=== PATIENT | male | born 1950 | race Caucasian/White ===

== ENCOUNTER 2017-08-27 11:15 | Inpatient (IN) | payer OTHER ==
[2017-08-27 11:56] VITALS: BMI 28.8
--- NOTE | 2017-08-27 14:03 | HP ---
COWS - Scale Resting Pulse: 0= [place] 80 or Below Sweatin=Flushed/Facial Moisture Restless Observation: 3= Extraneous Movement Pupil Size: 2= Moderately Dilated Bone or Joint Aches: 2= Severe Diffuse Aches Runny Nose/ Eye Tearin= Runny Nose/Eyes GI Upset > 30mins: 3= Vomiting/Diarrhea Tremor Observation: 2= Slight Tremor Visible Yawning Observation: 2= >3x During Session Anxiety or Irritability: 2=Irritable/Anxious Goose Flesh Skin: 0=Smooth Skin COWS Score: 20 Admission ROS S - HPI Chief Complaint: i need help to stop using heroin Allergies/Adverse Reactions: Allergies Allergy/AdvReac Type Severity Reaction Status Date / Time No Known Allergies Allergy Verified 08/27/17 13:24 History of Present Illness: this 67 years old male with heroin dependence,seeking detox,withdrawal symptom, never been in detox before history of hypertension,type 2 dm,hepatitis c treated,low back pain,history of back surgery peripheral neuropathy longest period of sobriety 30 years weight loss insomnia Exam Limitations: No Limitations - Ebola screening Have you traveled outside of the country in the last 21 days: No Have you had contact with anyone from an Ebola affected area: No Have you been sick,other than usual withdrawal symptoms: No Do you have a fever: No - Review of Systems Constitutional: Chills, Loss of Appetite, Malaise, Night Sweats, Changes in sleep, Weakness, Unintentional Wgt. Loss EENT: reports: Tearing, Nose Congestion Respiratory: reports: No Symptoms reported Cardiac: reports: No Symptoms Reported GI: reports: Diarrhea, Nausea, Vomiting, Abdominal cramping : reports: No Symptoms Reported Musculoskeletal: reports: Back Pain, Joint Pain, Muscle Pain, Joint Stiffness Integumentary: reports: Dryness Neuro: reports: Headache, Tremors Endocrine: reports: No Symptoms Reported Hematology: reports: No Symptoms Reported Psychiatric: reports: No Sypmtoms Reported, Judgement Intact, Mood/Affect Appropiate, Orientated x3 Patient History - Patient Medical History Hx Anemia: Yes (on ferrous sufate) Hx Asthma: No Hx Chronic Obstructive Pulmonary Disease (COPD): No Hx Cancer: No Hx Cardiac Disorders: No Hx Congestive Heart Failure: No Hx Hypertension: Yes (on meds.) Hx Hypercholesterolemia: No Hx Pacemaker: No HX Cerebrovascular Accident: No Hx Seizures: No Hx Dementia: No Hx Diabetes: Yes (Type II on med) Hx Gastrointestinal Disorders: No Hx Liver Disease: No Hx Genitourinary Disorders: No Hx Sexually Transmitted Disorders: No Hx Renal Disease (ESRD): No Hx Thyroid Disease: No Hx Human Immunodeficiency Virus (HIV): No (last 2017 nefative) Hx Hepatitis C: Yes (treated) Hx Depression: Yes Hx Suicide Attempt: No Hx Bipolar Disorder: No Hx Schizophrenia: No Other Medical History: no suicidal,no homicidal - Patient Surgical History Past Surgical History: Yes Hx Neurologic Surgery: Yes (Back sx in 2016) Anesthesia Reaction: No - PPD History Previous Implant?: Yes Documented Results: Negative w/o proof Implanted On Prior [facility] Admission?: No PPD to be Administered?: Yes - Smoking Cessation Smoking history: Current every day smoker Have you smoked in the past 12 months: Yes Aproximately how many cigarettes per day: 40 Hx Chewing Tobacco Use: No Initiated information on smoking cessation: Yes 'Breaking Loose' booklet given: 08/27/17 - Substance & Tx. History Hx Alcohol Use: No Hx Substance Use: Yes Substance Use Type: Heroin, Marijuana Hx Substance Use Treatment: No - Substances Abused Heroin Route: Inhalation Frequency: Daily Amount used: 10 BAGS Age of first use: 21 Date of Last Use: 08/26/17 Marijuana/Hashish Route: Smoking Frequency: 1-2 times per week Amount used: 1 JOINT Age of first use: 61 Date of Last Use: 08/20/17 Family Disease History - Family Disease History Family History: Denies Admission Physical Exam BHS - Vital Signs Vital Signs: Vital Signs - 24 hr 08/27/17 11:54 Temperature 98 F Pulse Rate 77 Respiratory 20 Rate Blood Pressure 117/67 - Physical General Appearance: Yes: Moderate Distress, Tremorous, Irritable, Sweating, Anxious HEENTM: Yes: Normal ENT Inspection, ODETTE, Pharynx Normal Respiratory: Yes: Lungs Clear, Normal Breath Sounds, No Respiratory Distress Neck: Yes: Within Normal Limits, Supple, Trachea in good position Breast: Yes: Within Normal Limits Cardiology: Yes: Within Normal Limits, Regular Rhythm, Regular Rate, S1, S2 Abdominal: Yes: Within Normal Limits, Normal Bowel Sounds, Non Tender, Soft Genitourinary: Yes: Within Normal Limits Back: Yes: Muscle Spasm, Surgical Scar Musculoskeletal: Yes: Back pain, Joint Stiffness, Muscle Pain Extremities: Yes: Within Normal Limits, Normal Range of Motion, Tremors 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 NML intact, Fully Oriented, Alert, Motor Strength 5/5 Integumentary: Yes: Dry Lymphatic: Yes: Within Normal Limits - Diagnostic (1) Opioid dependence with withdrawal Current Visit: Yes Status: Acute (2) Cannabis dependence Current Visit: Yes Status: Acute (3) Low back pain Current Visit: Yes Status: Acute (4) History of back surgery Current Visit: Yes Status: Acute (5) Peripheral neuropathy Current Visit: Yes Status: Acute (6) DM2 (diabetes mellitus, type 2) Current Visit: Yes Status: Acute (7) Essential hypertension Current Visit: Yes Status: Acute (8) Nicotine dependence Current Visit: Yes Status: Acute Cleared for Admission [facility] - Detox or Rehab [facility] Level of Care: Medically Managed Detox Regimen/Protocol: Methadone [facility] Breath Alcohol Content Breath Alcohol Content: 0.008 Urine Drug Screen - Results Drug Screen Negative: No Urine Drug Screen Results: THC-Marijuana, OPI-Opiates, MTD-Methadone
[2017-08-27] MEDS ORDERED: MAG HYDROX/AL HYDROX/SIMETH 30 ML UNIT-DOSE CUP PO PRN (14:24)
[2017-08-27] MEDS ORDERED: guaiFENesin/D-METHORPHAN HB 10 ML UNIT-DOSE CUPS PO PRN (14:24)
[2017-08-27] MEDS ORDERED: LOPERAMIDE HCL 2 MG CAPSULE PO PRN (14:24)
[2017-08-27] MEDS ORDERED: IBUPROFEN 400 MG TABLET (FP) PO PRN (14:24)
[2017-08-27] MEDS ORDERED: hydrOXYzine PAMOATE 25 MG CAPSULE (FP) PO PRN (14:24)
[2017-08-27] MEDS ORDERED: MENTHOL/PHENOL 1 EACH UD MM PRN (14:24)
[2017-08-27] MEDS ORDERED: P-EPHED 60MG/TRIPROLIDI 2.5MG TABLET PO PRN (14:24)
[2017-08-27] MEDS ORDERED: MAGNESIUM CITRATE 300 ML BOTTLE PO PRN (14:24)
[2017-08-27] MEDS ORDERED: MAGNESIUM HYDROX 2400MG/30ML ORAL SUSPENSION 30 ML CUP PO PRN (14:24)
[2017-08-27] MEDS ORDERED: ACETAMINOPHEN 325 MG TABLET (FP) PO PRN (14:24)
[2017-08-27] MEDS ORDERED: NICOTINE POLACRILEX 2 MG GUM BUC PRN (14:24)
[2017-08-27] MEDS ORDERED: METHADONE HCL 10 MG TABLET (FOR DETOX USE ONLY) PO ONE ×2 (14:50→23:00)
[2017-08-27] MEDS: diazePAM 5 MG TABLET PO PRN ×2 (15:52→20:12)
[2017-08-27] MEDS: NICOTINE 21 MG/24 HOURS TOPICAL PATCH TD SCH (15:56)
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
[2017-08-27] MEDS: FERROUS SO4 325 MG TABLET (FP) PO SCH (17:34)
[2017-08-27 18:00] LABS: URINE APPEARANCE SLCLOUDY; URINE BILIRUBIN NEGATIVE (<2.0 mg/dL); URINE COLOR YELLOW; URINE GLUCOSE (UA) NEGATIVE (NEGATIVE); URINE KETONE NEGATIVE (NEGATIVE); URINE LEUK ESTERASE NEGATIVE (NEGATIVE); URINE NITRITE NEGATIVE (NEGATIVE); URINE PROTEIN NEGATIVE (NEGATIVE); URINE UROBILINOGEN NEGATIVE mg/dL (0.2-1.0)
[2017-08-27] MEDS ORDERED: MELATONIN 5 MG TABLETS PO PRN (22:00)
[2017-08-27] MEDS: PREGABALIN 75 MG CAPSULE PO SCH (22:17)
[2017-08-27] MEDS: THIAMINE HCL 100 MG TABLET (FP) PO SCH (22:17)
[2017-08-28] MEDS: diazePAM 5 MG TABLET PO PRN ×5 (05:52→23:20)
[2017-08-28] MEDS: PATIENT'S OWN MEDICATION (NON-FORMULARY) (Linagliptin [Tradjenta] 5 MG) PO SCH (07:53)
[2017-08-28] MEDS: FERROUS SO4 325 MG TABLET (FP) PO SCH ×2 (07:53→17:18)
[2017-08-28] MEDS: PREGABALIN 75 MG CAPSULE PO SCH ×3 (07:53→22:07)
[2017-08-28 09:55] LABS: HEMATOCRIT 35.1 % (35.4-49); HEMOGLOBIN 11.7 GM/dL (11.7-16.9); MCH 31.4 pg (25.7-33.7); MCHC 33.4 g/dl (32.0-35.9); MEAN PLT VOLUME 9.4 fl (7.5-11.1); PLATELET COUNT 196 K/MM3 (134-434); RBC 3.73 M/mm3 (4.00-5.60); RDW 13.9 % (11.9-15.9); WHITE BLOOD COUNT 8.3 K/mm3 (4.0-10.0)
[2017-08-28] MEDS ORDERED: METHADONE HCL 10 MG TABLET (FOR DETOX USE ONLY) PO ONE (10:00)
[2017-08-28 10:23] LABS: BLOOD UREA NITROGEN 35 mg/dL (7-18)
[2017-08-28 10:51] LABS: ALBUMIN 3.7 g/dl (3.4-5.0); ALK PHOS 110 U/L (45-117); ANION GAP 10 (8-16); BILIRUBIN,TOTAL 0.3 mg/dL (0.2-1.0); CALCIUM 9.2 mg/dL (8.5-10.1); CHLORIDE 107 mmol/L (98-107); CO2 24 mmol/L (21-32); CREATININE 1.7 mg/dL (0.7-1.3); GLUCOSE,RANDOM 94 mg/dL (74-106); SGOT/AST 16 U/L (15-37); SGPT/ALT 17 U/L (12-78); SODIUM 141 mmol/L (136-145); TOT PROT 7.6 g/dl (6.4-8.2)
[2017-08-28] MEDS: TAMSULOSIN HCL 0.4 MG CAP.ER.24H (FP) PO SCH (10:52)
[2017-08-28] MEDS: NICOTINE 21 MG/24 HOURS TOPICAL PATCH TD SCH (10:52)
[2017-08-28] MEDS: PRENATAL VITAMINS W/ FOLIC ACID TABLET (FP) PO SCH (10:52)
[2017-08-28] MEDS: PANTOPRAZOLE 40 MG TABLET (FP) PO SCH (10:52)
[2017-08-28] MEDS: RAMIPRIL 5 MG CAPSULE (FP) PO SCH (10:53)
[2017-08-28] MEDS: PATIENT'S OWN MEDICATION (NON-FORMULARY) (Triamterene/Hydrochlorothiazid [Triamterene-Hctz PO SCH (10:53)
--- NOTE | 2017-08-28 12:06 | PN ---
S COWS - Scale Resting Pulse: 0= [place] 80 or Below Sweatin= Chills/Flushing Restless Observation: 3= Extraneous Movement Pupil Size: 2= Moderately Dilated Bone or Joint Aches: 4=Acute Joint/Muscle Pain Runny Nose/ Eye Tearin= Runny Nose/Eyes GI Upset > 30mins: 1= Stomach Cramp Tremor Observation of Outstretched Hands: 2= Slight Tremor Visible Yawning Observation: 1= 1-2x During Session Anxiety or Irritability: 2=Irritable/Anxious Goose Flesh Skin: 0=Smooth Skin COWS Score: 18 BHS Progress Note (SOAP) Subjective: PT C/O ANXIETY,RESTLESSNESS, TREMORS,CHILLS, TEARY EYES,NASAL CONGESTION/RUNNY NOSE,LEG CRAMPS "SEAN HORSE". Objective: 08/28/17 12:03 Vital Signs 08/28/17 08/28/17 08/28/17 06:03 06:30 09:23 Temperature 97.3 F L 98.2 F Pulse Rate 78 75 Respiratory 18 18 18 Rate Blood Pressure 112/64 102/60 Laboratory Tests 08/27/17 08/27/17 08/28/17 13:53 15:00 05:50 WBC 8.3 RBC 3.73 L Hgb 11.7 Hct 35.1 L MCV 94.0 MCH 31.4 MCHC 33.4 RDW 13.9 Plt Count 196 MPV 9.4 Sodium Potassium Chloride Carbon Dioxide Anion Gap BUN Creatinine Creat Clearance w eGFR POC Glucometer 163 Random Glucose Calcium Total Bilirubin AST ALT Alkaline Phosphatase Total Protein Albumin Urine Color Yellow Urine Appearance Slcloudy Urine pH 5.0 Ur Specific [place] 1.015 Urine Protein Negative Urine Glucose (UA) Negative Urine Ketones Negative Urine Blood Negative Urine Nitrite Negative Urine Bilirubin Negative Urine Urobilinogen Negative Ur Leukocyte Esterase Negative 08/28/17 08/28/17 05:50 05:51 WBC RBC Hgb Hct MCV MCH MCHC RDW Plt Count MPV Sodium 141 Potassium 5.0 Chloride 107 Carbon Dioxide 24 Anion Gap 10 BUN 35 H Creatinine 1.7 H Creat Clearance w eGFR 40.53 POC Glucometer 118 Random Glucose 94 Calcium 9.2 Total Bilirubin 0.3 AST 16 ALT 17 Alkaline Phosphatase 110 Total Protein 7.6 Albumin 3.7 Urine Color Urine Appearance Urine pH Ur Specific [place] Urine Protein Urine Glucose (UA) Urine Ketones Urine Blood Urine Nitrite Urine Bilirubin Urine Urobilinogen Ur Leukocyte Esterase BUN AND CR NOTED. Assessment: 08/28/17 12:04 WITHDRAWAL SX Plan: CONTINUE DETOX REPEAT BUN/CR INCREASE PO FLUIDS ACTIFED PRN FLEXERIL 10 MG PO TID DIRECTED
[2017-08-28] MEDS: CYCLOBENZAPRINE HCL 10 MG TABLET (FP) PO PRN ×2 (13:09→22:07)
--- NOTE | 2017-08-28 13:34 | EKG ---
Test Reason : Blood Pressure : / mmHG Vent. Rate : 062 BPM Atrial Rate : 062 BPM P-R Int : 178 ms QRS Dur : 116 ms QT Int : 418 ms P-R-T Axes : 038 -70 034 degrees QTc Int : 424 ms NORMAL SINUS RHYTHM LEFT ANTERIOR FASCICULAR BLOCK ABNORMAL ECG NO PREVIOUS ECGS AVAILABLE Confirmed by JANINE YA, SARAN ([id number]) on 08/28/2017 1:34:18 PM Referred By: Confirmed By:SARAN MEHTA MD
[2017-08-28] MEDS: THIAMINE HCL 100 MG TABLET (FP) PO SCH (22:07)
[2017-08-29] MEDS: PREGABALIN 75 MG CAPSULE PO SCH ×3 (06:03→22:27)
[2017-08-29] MEDS: diazePAM 5 MG TABLET PO PRN ×4 (06:04→20:59)
[2017-08-29] MEDS: PATIENT'S OWN MEDICATION (NON-FORMULARY) (Linagliptin [Tradjenta] 5 MG) PO SCH (08:19)
[2017-08-29] MEDS: FERROUS SO4 325 MG TABLET (FP) PO SCH ×2 (08:19→16:51)
[2017-08-29] MEDS ORDERED: METHADONE HCL 5 MG TABLET (FOR DETOX USE ONLY) PO ONE (10:00)
--- NOTE | 2017-08-29 10:25 | EKG ---
Test Reason : Blood Pressure : / mmHG Vent. Rate : 073 BPM Atrial Rate : 073 BPM P-R Int : 166 ms QRS Dur : 110 ms QT Int : 394 ms P-R-T Axes : 039 -73 065 degrees QTc Int : 434 ms NORMAL SINUS RHYTHM INCOMPLETE RIGHT BUNDLE BRANCH BLOCK LEFT ANTERIOR FASCICULAR BLOCK ABNORMAL ECG WHEN COMPARED WITH ECG OF 27-AUG-2017 15:40, NO SIGNIFICANT CHANGE WAS FOUND Confirmed by NANCY SINGER MD ([id number]) on 08/29/2017 10:25:07 AM Referred By: Confirmed By:NANCY SINGER MD
[2017-08-29] MEDS: TAMSULOSIN HCL 0.4 MG CAP.ER.24H (FP) PO SCH (10:26)
[2017-08-29] MEDS: PANTOPRAZOLE 40 MG TABLET (FP) PO SCH (10:26)
[2017-08-29] MEDS: RAMIPRIL 5 MG CAPSULE (FP) PO SCH (10:30)
[2017-08-29] MEDS: NICOTINE 21 MG/24 HOURS TOPICAL PATCH TD SCH (10:30)
[2017-08-29] MEDS: PRENATAL VITAMINS W/ FOLIC ACID TABLET (FP) PO SCH (10:31)
[2017-08-29] MEDS: PATIENT'S OWN MEDICATION (NON-FORMULARY) (Triamterene/Hydrochlorothiazid [Triamterene-Hctz PO SCH (10:31)
--- NOTE | 2017-08-29 11:56 | PN ---
BHS COWS - Scale Resting Pulse: 0= [place] 80 or Below Sweatin= Chills/Flushing Restless Observation: 3= Extraneous Movement Pupil Size: 0= Normal to Room Light Bone or Joint Aches: 1= Mild Discomfort Runny Nose/ Eye Tearin= Nasal Congestion GI Upset > 30mins: 0= None Tremor Observation of Outstretched Hands: 1= Tremor [place], Not Seen Yawning Observation: 1= 1-2x During Session Anxiety or Irritability: 2=Irritable/Anxious Goose Flesh Skin: 0=Smooth Skin COWS Score: 10 BHS Progress Note (SOAP) Subjective: ANXIETY,FATIGUE. OOB WITH STEADY GAIT. Objective: 08/29/17 11:54 Vital Signs 08/29/17 08/29/17 07:40 09:43 Temperature 97.8 F 97.7 F Pulse Rate 70 60 Respiratory 18 18 Rate Blood Pressure 113/70 90/60 Laboratory Tests 08/27/17 08/27/17 08/28/17 13:53 15:00 05:50 WBC 8.3 RBC 3.73 L Hgb 11.7 Hct 35.1 L MCV 94.0 MCH 31.4 MCHC 33.4 RDW 13.9 Plt Count 196 MPV 9.4 Sodium Potassium Chloride Carbon Dioxide Anion Gap BUN Creatinine Creat Clearance w eGFR POC Glucometer 163 Random Glucose Calcium Total Bilirubin AST ALT Alkaline Phosphatase Total Protein Albumin Urine Color Yellow Urine Appearance Slcloudy Urine pH 5.0 Ur Specific [place] 1.015 Urine Protein Negative Urine Glucose (UA) Negative Urine Ketones Negative Urine Blood Negative Urine Nitrite Negative Urine Bilirubin Negative Urine Urobilinogen Negative Ur Leukocyte Esterase Negative RPR Titer 08/28/17 08/28/17 08/28/17 05:50 05:50 05:51 WBC RBC Hgb Hct MCV MCH MCHC RDW Plt Count MPV Sodium 141 Potassium 5.0 Chloride 107 Carbon Dioxide 24 Anion Gap 10 BUN 35 H Creatinine 1.7 H Creat Clearance w eGFR 40.53 POC Glucometer 118 Random Glucose 94 Calcium 9.2 Total Bilirubin 0.3 AST 16 ALT 17 Alkaline Phosphatase 110 Total Protein 7.6 Albumin 3.7 Urine Color Urine Appearance Urine pH Ur Specific [place] Urine Protein Urine Glucose (UA) Urine Ketones Urine Blood Urine Nitrite Urine Bilirubin Urine Urobilinogen Ur Leukocyte Esterase RPR Titer Nonreactive Assessment: 08/29/17 11:55 WITHDRAWALS SX Plan: CONTINUE DETOX
[2017-08-29] MEDS: CYCLOBENZAPRINE HCL 10 MG TABLET (FP) PO PRN (22:27)
[2017-08-29] MEDS: THIAMINE HCL 100 MG TABLET (FP) PO SCH (22:27)
[2017-08-29] MEDS ORDERED: TRIMETHOBENZAMIDE HCL 200MG/2ML INJ IM PRN (22:49)
[2017-08-30] MEDS: diazePAM 5 MG TABLET PO PRN ×2 (00:59→06:05)
[2017-08-30] MEDS: PREGABALIN 75 MG CAPSULE PO SCH (06:06)
[2017-08-30 06:27] VITALS: BP 107/73; PULSE 100; TEMP 98.4
[2017-08-30] MEDS: PATIENT'S OWN MEDICATION (NON-FORMULARY) (Linagliptin [Tradjenta] 5 MG) PO SCH (08:13)
[2017-08-30] MEDS: FERROUS SO4 325 MG TABLET (FP) PO SCH (08:13)
[2017-08-30] MEDS ORDERED: METHADONE HCL 5 MG TABLET (FOR DETOX USE ONLY) PO ONE (10:00)
--- NOTE | 2017-08-30 12:13 | PN ---
BHS Progress Note (SOAP) Subjective: Anxious, Fatigue, Nausea. Objective: PATIENT A & O X 3, OBSERVED AMBULATING ON UNIT. NO ACUTE DISTRESS. 08/30/17 12:12 Vital Signs Temperature 98.4 F 08/30/17 06:27 Pulse Rate 100 H 08/30/17 06:27 Respiratory Rate 18 08/30/17 06:30 Blood Pressure 107/73 08/30/17 06:27 O2 Sat by Pulse Oximetry (%) Laboratory Tests 08/27/17 08/27/17 08/28/17 13:53 15:00 05:50 WBC 8.3 RBC 3.73 L Hgb 11.7 Hct 35.1 L MCV 94.0 MCH 31.4 MCHC 33.4 RDW 13.9 Plt Count 196 MPV 9.4 Sodium Potassium Chloride Carbon Dioxide Anion Gap BUN Creatinine Creat Clearance w eGFR POC Glucometer 163 Random Glucose Calcium Total Bilirubin AST ALT Alkaline Phosphatase Total Protein Albumin Urine Color Yellow Urine Appearance Slcloudy Urine pH 5.0 Ur Specific [place] 1.015 Urine Protein Negative Urine Glucose (UA) Negative Urine Ketones Negative Urine Blood Negative Urine Nitrite Negative Urine Bilirubin Negative Urine Urobilinogen Negative Ur Leukocyte Esterase Negative RPR Titer 08/28/17 08/28/17 08/28/17 05:50 05:50 05:51 WBC RBC Hgb Hct MCV MCH MCHC RDW Plt Count MPV Sodium 141 Potassium 5.0 Chloride 107 Carbon Dioxide 24 Anion Gap 10 BUN 35 H Creatinine 1.7 H Creat Clearance w eGFR 40.53 POC Glucometer 118 Random Glucose 94 Calcium 9.2 Total Bilirubin 0.3 AST 16 ALT 17 Alkaline Phosphatase 110 Total Protein 7.6 Albumin 3.7 Urine Color Urine Appearance Urine pH Ur Specific [place] Urine Protein Urine Glucose (UA) Urine Ketones Urine Blood Urine Nitrite Urine Bilirubin Urine Urobilinogen Ur Leukocyte Esterase RPR Titer Nonreactive LABS NOTED. Assessment: 08/30/17 12:12 WITHDRAWAL SYMPTOMS. Plan: CONTINUE DETOX.
--- NOTE | 2017-08-30 12:16 | DS ---
[facility] Detox Discharge Summary Admission Date: 08/27/17 Discharge Date: 08/30/17 - History Present History: Cannabis Dependence, Opioid Dependence Additional Comments: PATIENT DOES NOT WISH TO STAY TO COMPLETE DETOX REGIMEN. RISKS OF LEAVING DETOX UNIT AGAINST MEDICAL ADVICE AND PRIOR TO COMPLETION OF DETOX REGIMEN EXPLAINED TO PATIENT. PATIENT ADVISED TO GO IMMEDIATELY TO NEAREST ER SHOULD ANY INTOLERABLE DETOX SYMPTOMS DEVELOP AT ANY TIME. PATIENT LEFT DETOX UNIT IN STABLE MEDICAL CONDITION. Pertinent Past History: Nicotine Dependence, Peripheral Neuropathy, Depression, Type II DM, Low Back Pain, History of Back Surgery, History of Anemia (Iron-Deficiency type), HTN. - Physical Exam Results Vital Signs: Vital Signs Temperature 98.4 F 08/30/17 06:27 Pulse Rate 100 H 08/30/17 06:27 Respiratory Rate 18 08/30/17 06:30 Blood Pressure 107/73 08/30/17 06:27 O2 Sat by Pulse Oximetry (%) Pertinent Admission Physical Exam Findings: WITHDRAWAL SYMPTOMS. Laboratory Tests 08/27/17 08/27/17 08/28/17 13:53 15:00 05:50 WBC 8.3 RBC 3.73 L Hgb 11.7 Hct 35.1 L MCV 94.0 MCH 31.4 MCHC 33.4 RDW 13.9 Plt Count 196 MPV 9.4 Sodium Potassium Chloride Carbon Dioxide Anion Gap BUN Creatinine Creat Clearance w eGFR POC Glucometer 163 Random Glucose Calcium Total Bilirubin AST ALT Alkaline Phosphatase Total Protein Albumin Urine Color Yellow Urine Appearance Slcloudy Urine pH 5.0 Ur Specific [place] 1.015 Urine Protein Negative Urine Glucose (UA) Negative Urine Ketones Negative Urine Blood Negative Urine Nitrite Negative Urine Bilirubin Negative Urine Urobilinogen Negative Ur Leukocyte Esterase Negative RPR Titer 08/28/17 08/28/17 08/28/17 05:50 05:50 05:51 WBC RBC Hgb Hct MCV MCH MCHC RDW Plt Count MPV Sodium 141 Potassium 5.0 Chloride 107 Carbon Dioxide 24 Anion Gap 10 BUN 35 H Creatinine 1.7 H Creat Clearance w eGFR 40.53 POC Glucometer 118 Random Glucose 94 Calcium 9.2 Total Bilirubin 0.3 AST 16 ALT 17 Alkaline Phosphatase 110 Total Protein 7.6 Albumin 3.7 Urine Color Urine Appearance Urine pH Ur Specific [place] Urine Protein Urine Glucose (UA) Urine Ketones Urine Blood Urine Nitrite Urine Bilirubin Urine Urobilinogen Ur Leukocyte Esterase RPR Titer Nonreactive LABS NOTED. - Treatment Hospital Course: Detoxed Safely - Medication Discharge Medications: Ambulatory Orders Duloxetine HCl [Cymbalta -] 60 mg PO DAILY 08/27/17 Ferrous Sulfate 325 mg PO BID 08/27/17 Linagliptin [Tradjenta] 5 mg PO DAILY 08/27/17 Omeprazole 40 mg PO DAILY 08/27/17 Pregabalin [Lyrica -] 75 mg PO TID 08/27/17 Ramipril [Altace] 10 mg PO DAILY 08/27/17 Tamsulosin HCl [Flomax] 0.4 mg PO DAILY 08/27/17 Triamterene/Hydrochlorothiazid [Triamterene-Hctz 37.5-25 mg Tb] 1 each PO DAILY 08/27/17 - Diagnosis (1) Cannabis dependence Current Visit: Yes Status: Acute (2) Nicotine dependence Current Visit: Yes Status: Acute Qualifiers: Nicotine product type: cigarettes Substance use status: in withdrawal Qualified Code(s): F17.213 - Nicotine dependence, cigarettes, with withdrawal (3) Opioid dependence with withdrawal Current Visit: Yes Status: Acute (4) DM2 (diabetes mellitus, type 2) Current Visit: Yes Status: Chronic Qualifiers: 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: without usp use Diabetes mellitus complication status: with unspecified complications Qualified Code(s) : E11.8 - Type 2 diabetes mellitus with unspecified complications (5) Essential hypertension Current Visit: Yes Status: Chronic (6) History of back surgery Current Visit: Yes Status: Chronic (7) Low back pain Current Visit: Yes Status: Chronic Qualifiers: Chronicity: unspecified Back pain laterality: unspecified Sciatica presence: unspecified whether sciatica present Qualified Code(s): M54.5 - Low back pain (8) Peripheral neuropathy Current Visit: Yes Status: Chronic Qualifiers: Peripheral neuropathy type: polyneuropathy, unspecified Qualified Code(s): G62.9 - Polyneuropathy, unspecified - AMA Did Patient Leave Against Medical Advice: Yes (PATIENT DID NOT WISH TO STAY TO COMPLETE DETOX REGIMEN.)
[2017-08-31] MEDS ORDERED: METHADONE HCL 10 MG TABLET (FOR DETOX USE ONLY) PO ONE (10:00)
[2017-09-01] MEDS ORDERED: METHADONE HCL 5 MG TABLET (FOR DETOX USE ONLY) PO ONE (06:00)
== END 2017-08-30 09:13 | disposition left against medical advice (07) | DRG 770 ==
LOC: YASAS 11:15 → Y3N 14:03
PROVIDERS: ADMIT Internal Medicine; ATTEND Internal Medicine
PROC: HZ2ZZZZ Detoxification Services for Substance Abuse Treatment (ICD-10-PCS; principal; 2017-08-27)
DX: F11.23 Opioid dependence with withdrawal (principal); F12.20 Cannabis dependence, uncomplicated; F17.210 Nicotine dependence, cigarettes, uncomplicated; F32.9 Major depressive disorder, single episode, unspecified; I10 Essential (primary) hypertension; E11.9 Type 2 diabetes mellitus without complications; Z79.84 Long term (current) use of oral hypoglycemic drugs; D50.9 Iron deficiency anemia, unspecified; M54.5 Low back pain; Z98.890 Other specified postprocedural states
CPT/HCPCS: 36415; 80053; 81003; 82962; 85027; 86593; 93005; 93010

== ENCOUNTER 2023-08-04 16:36 | Inpatient (IN) | payer OTHER ==
[2023-08-04 09:56] VITALS: BMI 28.5
[2023-08-04 16:54] VITALS: RESP 18
[2023-08-04] MEDS ORDERED: NICOTINE POLACRILEX 2 MG LOZENGE BC PRN (19:53)
[2023-08-04] MEDS ORDERED: guaiFENesin 600 MG TABLET.ER (FP) PO PRN (19:53)
[2023-08-04] MEDS ORDERED: BENZONATATE 200 MG CAPSULE PO PRN (19:53)
[2023-08-04] MEDS ORDERED: NALOXONE HCL (KLOXXADO) 8 MG SPRAY NS PRN (19:53)
[2023-08-04] MEDS ORDERED: MAGNESIUM HYDROX 2400MG/30ML ORAL SUSPENSION 30 ML CUP PO PRN (19:53)
[2023-08-04] MEDS ORDERED: MAG HYDROX/AL HYDROX/SIMETH 30 ML UNIT-DOSE CUP PO PRN (19:53)
[2023-08-04] MEDS ORDERED: POLYETHYLENE GLYCOL (HEALTHYLAX) 3350 17 GM PACKET PO PRN (19:53)
[2023-08-04] MEDS ORDERED: P-EPHED 60MG/TRIPROLIDI 2.5MG TABLET PO PRN (19:53)
[2023-08-04] MEDS ORDERED: BENZOCAINE/MENTHOL (CHLORASEPTIC ) LOZENGE MM PRN (19:53)
[2023-08-04] MEDS ORDERED: LOPERAMIDE HCL 2 MG CAPSULE PO PRN (19:53)
[2023-08-04] MEDS ORDERED: ONDANSETRON *ODT* 4 MG TABLET SL PRN (19:53)
[2023-08-04] MEDS ORDERED: ACETAMINOPHEN 325 MG TABLET (FP) PO PRN (19:53)
[2023-08-04] MEDS ORDERED: NALOXONE HCL 0.4 MG/ML VIAL IM PRN (19:53)
[2023-08-04] MEDS ORDERED: BACITRACIN ZINC 15 GM TUBE TOPICAL OINTMENT TP SCH (22:00)
[2023-08-04] MEDS: ATORVASTATIN CA 10 MG TABLET (FP) PO SCH (23:04)
[2023-08-04] MEDS: BACITRACIN 0.9 GM PACKET TP SCH (23:04)
[2023-08-04] MEDS: APIXABAN 5 MG TABLET PO SCH (23:04)
[2023-08-04] MEDS: THIAMINE 100 MG TABLET PO SCH (23:05)
[2023-08-04] MEDS: MELATONIN 5 MG TABLETS PO SCH (23:06)
[2023-08-05] MEDS: TAMSULOSIN HCL 0.4 MG CAP PO SCH (08:04)
[2023-08-05 08:44] VITALS: PULSE 86
[2023-08-05] MEDS: amLODIPine BESYLATE 10 MG TABLET (FP) PO SCH (09:16)
[2023-08-05] MEDS: FUROSEMIDE 20 MG TABLET (FP) PO SCH (09:16)
[2023-08-05] MEDS: PRENATAL VITAMINS W/ FOLIC ACID TABLET (FP) PO SCH (09:16)
[2023-08-05] MEDS: PANTOPRAZOLE 40 MG TABLET PO SCH (09:16)
[2023-08-05] MEDS: NICOTINE 7 MG/24 HOURS TOPICAL PATCH TD SCH (09:16)
[2023-08-05] MEDS ORDERED: cloNIDine HCL 0.1 MG TABLET PO PRN (09:49)
[2023-08-05] MEDS ORDERED: PATIENT'S OWN MEDICATION (NON-FORMULARY) (Linagliptin [Tradjenta] 5 MG Tablet) PO SCH (10:00)
[2023-08-05] MEDS: methaDONE HCL 10 MG TABLET (FOR DETOX USE ONLY) PO ONE (10:36)
[2023-08-05 12:42] VITALS: BP 149/79; TEMP 97.4
[2023-08-07] MEDS ORDERED: methaDONE HCL 10 MG TABLET (FOR DETOX USE ONLY) PO ONE (10:00)
[2023-08-08] MEDS ORDERED: APIXABAN 5 MG TABLET PO SCH (10:00)
[2023-08-09] MEDS ORDERED: methaDONE HCL 10 MG TABLET (FOR DETOX USE ONLY) PO ONE (10:00)
== END 2023-08-05 16:06 | disposition left against medical advice (07) | DRG 894 ==
LOC: YASAS 16:36 → Y6N 21:23
PROVIDERS: ADMIT Allergy & Immunology; ATTEND Surgery
PROC: HZ2ZZZZ Detoxification Services for Substance Abuse Treatment (ICD-10-PCS; principal; 2023-08-04)
DX: F11.20 Opioid dependence, uncomplicated (principal); F14.20 Cocaine dependence, uncomplicated; G62.9 Polyneuropathy, unspecified; E78.5 Hyperlipidemia, unspecified; I10 Essential (primary) hypertension; E11.9 Type 2 diabetes mellitus without complications; Z79.84 Long term (current) use of oral hypoglycemic drugs; K21.9 Gastro-esophageal reflux disease without esophagitis; M54.50 Low back pain, unspecified; Z86.718 Personal history of other venous thrombosis and embolism; Z79.01 Long term (current) use of anticoagulants; Z87.828 Personal history of other (healed) physical injury and trauma; Z99.89 Dependence on other enabling machines and devices
CPT/HCPCS: 70450-TC; 72125-TC; 80305; 80307; 93005; 93010; 99284-25